=== PATIENT | female | born 1935 | race Caucasian/White ===

== ENCOUNTER 2023-08-05 12:39 | Inpatient (IN) | payer MEDICARE, BC ==
[2023-08-05 13:13] LABS: #Monocytes 0.6 thou/uL (0.11-0.59); #Neutrophils 4.6 thou/uL (1.40-6.50); %Basophils 0.3 % (0.0-1.0); %Lymphocytes 10.5 % (21.0-51.0); %Monocytes 9.8 % (0.0-10.0); %Neutrophils 78.9 % (42.0-75.0); Hematocrit 24.8 % (36.0-47.0); Mean Corpuscular HGB CONC 32.3 g/dL (32.0-36.0); Mean Corpuscular Hemoglobin 24.8 pg (27.0-31.0); Mean Platelet Volume 8.6 fL (7.4-10.4); Platelet Count 240 10x3/uL (130-400); RBC Distribution Width 15.9 % (11.5-14.5); Red Blood Cell (RBC) Count 3.22 mill/uL (4.20-5.40); White Blood Cell (WBC) Count 5.8 10x3/uL (4.8-10.8)
[2023-08-05 13:28] LABS: INR-International Normal Ratio 1.9; PTT 30.9 sec (22.9-36.1); Prothrombin Time 22.9 sec (12.0-14.7)
[2023-08-05 13:36] LABS: ALT (SGPT) 11 U/L (8-55); AST (SGOT) 17 U/L (5-34); Albumin 3.9 g/dL (3.4-4.8); Alkaline Phosphatase 67 U/L (40-110); Anion Gap 15 mmol/L (10-20); BUN (Urea Nitrogen) 15 mg/dL (9.8-20.1); Bilirubin, Total 0.4 mg/dL (0.2-1.2); Calc. Creatinine Clearance 0 mL/min (70-130); Calcium 8.3 mg/dL (7.8-10.44); Carbon Dioxide 19 mmol/L (23-31); Chloride 104 mmol/L (98-107); Estimated GFR 69; Globulin 2.7 g/dL (2.4-3.5); Glucose 106 mg/dL (83-110); Lipase 24 U/L (8-78); Magnesium 1.8 mg/dL (1.6-2.6); Potassium 3.8 mmol/L (3.5-5.1); Protein, Total 6.6 g/dL (5.8-8.1); Sodium 134 mmol/L (136-145)
[2023-08-05 13:46] LABS: Troponin I Less than 0.010 ng/mL (< 0.028)
[2023-08-05 15:06] LABS: Bilirubin Negative (Negative); Blood, Urine Negative (Negative); CAUTI Indications for Culture Alt mental st,lethar; Clarity Clear (Clear); Glucose, Urine (Dipstick) Normal (Negative); Ketone, Urine Negative (Negative); Leukocyte 75 Leu/uL (Negative); Nitrite 1+ (Negative); Protein, Urine (Dipstick) Negative (Neg-Trace); RBC/HPF 0-3 HPF (0-3); Squamous Epithelial 0-3 HPF (0-3); Urobilinogen Normal mg/dL (Less than 2); pH, Urine 6.5 (5.0-9.0)
[2023-08-05 15:07] LABS: Bacteria/HPF 1+ HPF (None Seen)
[2023-08-05 15:08] LABS: Urine Culture Reflex Yes Yes
[2023-08-05] MEDS ORDERED: cefTRIAXone (ROCEPHIN) 1 GM VIAL ONE ×2 (18:37→18:38)
[2023-08-05] MEDS ORDERED: Sodium Chloride 0.9% 100 ML ONE (18:37)
[2023-08-05] MEDS ORDERED: Ondansetron ODT 4 MG TAB PO PRN (18:50)
[2023-08-05] MEDS ORDERED: Pregabalin 50 MG CAP PO SCH (19:00)
[2023-08-05] MEDS ORDERED: Apixaban 2.5 MG TAB PO SCH (21:00)
[2023-08-05] MEDS: Lactated Ringer's 1,000 ML IV SCH (21:19)
[2023-08-05] MEDS: Acetaminophen 325 MG TAB PO PRN (22:25)
[2023-08-05] MEDS: Diclofenac 1% 50 GM TOPICAL GEL TP PRN (22:26)
[2023-08-06] MEDS: Levothyroxine Sodium 25 MCG TAB PO SCH (06:21)
[2023-08-06 06:42] LABS: #Monocytes 0.5 thou/uL (0.11-0.59); #Neutrophils 3.2 thou/uL (1.40-6.50); %Basophils 0.4 % (0.0-1.0); %Lymphocytes 20.3 % (21.0-51.0); %Neutrophils 67.9 % (42.0-75.0); Hematocrit 22.5 % (36.0-47.0); Hemoglobin 7.3 g/dL (12.0-16.0); Mean Corpuscular HGB CONC 32.4 g/dL (32.0-36.0); Mean Corpuscular Hemoglobin 25.3 pg (27.0-31.0); Mean Corpuscular Volume 78.1 fl (78.0-98.0); Mean Platelet Volume 8.3 fL (7.4-10.4); Platelet Count 223 10x3/uL (130-400); RBC Distribution Width 15.9 % (11.5-14.5); Red Blood Cell (RBC) Count 2.88 mill/uL (4.20-5.40); White Blood Cell (WBC) Count 4.6 10x3/uL (4.8-10.8)
[2023-08-06 07:07] LABS: ALT (SGPT) 10 U/L (8-55); AST (SGOT) 14 U/L (5-34); Albumin 3.1 g/dL (3.4-4.8); Alkaline Phosphatase 55 U/L (40-110); Anion Gap 10 mmol/L (10-20); BUN (Urea Nitrogen) 9 mg/dL (9.8-20.1); Bilirubin, Total 0.3 mg/dL (0.2-1.2); Calc. Creatinine Clearance 45 mL/min (70-130); Carbon Dioxide 26 mmol/L (23-31); Chloride 105 mmol/L (98-107); Estimated GFR 77; Globulin 2.5 g/dL (2.4-3.5); Glucose 82 mg/dL (83-110); Iron 18 ug/dL (50-170); Iron Binding Capacity, Total 375 mcg/dL (265-497); Potassium 3.4 mmol/L (3.5-5.1); Protein, Total 5.6 g/dL (5.8-8.1); Sodium 138 mmol/L (136-145)
[2023-08-06] MEDS: Apixaban 2.5 MG TAB PO SCH ×2 (09:04→20:31)
[2023-08-06] MEDS: Pregabalin 50 MG CAP PO SCH ×2 (09:04→20:31)
[2023-08-06] MEDS ORDERED: Ferrous Sulfate 300 MG (5 mL) UDCUP PO SCH (09:15)
[2023-08-06] MEDS ORDERED: Polyethylene Glycol 3350 17 GM Packet PO PRN (09:37)
[2023-08-06] MEDS: Lactated Ringer's 1,000 ML IV SCH ×2 (10:48→11:21)
[2023-08-06] MEDS: Acetaminophen 325 MG TAB PO PRN (11:17)
[2023-08-06] MEDS: Ascorbic Acid 500 mg Chewable Tablet PO SCH (11:19)
[2023-08-06] MEDS: FLU VACC QS2023(65UP)/MF59C/PF 60 MCG/0.5 ML SYRINGE IM ONE (11:26)
[2023-08-06] MEDS ORDERED: Amlodipine 5 MG TAB PO SCH (15:55)
[2023-08-06] MEDS ORDERED: Amiodarone 200 MG TAB PO SCH (15:55)
[2023-08-06] MEDS ORDERED: Oxybutynin ER 5 MG TAB PO SCH (16:15)
[2023-08-06] MEDS: cefTRIAXone\\ROCEPHIN 1 GM in Sodium Chloride 0.9% 100 ML IVPB SCH (18:31)
[2023-08-07] MEDS: Acetaminophen 325 MG TAB PO PRN ×2 (00:07→21:44)
[2023-08-07] MEDS: Diclofenac 1% 50 GM TOPICAL GEL TP PRN (00:08)
[2023-08-07] MEDS: Levothyroxine Sodium 25 MCG TAB PO SCH (06:34)
[2023-08-07 07:23] LABS: #Eosinphils 0.1 thou/uL (0.0-0.7); #Monocytes 0.5 thou/uL (0.11-0.59); #Neutrophils 3.7 thou/uL (1.40-6.50); %Basophils 0.4 % (0.0-1.0); %Eosinophils 1.9 % (0.0-10.0); %Lymphocytes 17.6 % (21.0-51.0); %Monocytes 10.3 % (0.0-10.0); %Neutrophils 69.6 % (42.0-75.0); Hematocrit 21.8 % (36.0-47.0); Mean Corpuscular HGB CONC 32.1 g/dL (32.0-36.0); Mean Corpuscular Volume 77.9 fl (78.0-98.0); Mean Platelet Volume 8.8 fL (7.4-10.4); Platelet Count 220 10x3/uL (130-400); RBC Distribution Width 16.1 % (11.5-14.5); White Blood Cell (WBC) Count 5.2 10x3/uL (4.8-10.8)
[2023-08-07 07:51] LABS: ALT (SGPT) 9 U/L (8-55); AST (SGOT) 15 U/L (5-34); Albumin 3.2 g/dL (3.4-4.8); Alkaline Phosphatase 56 U/L (40-110); Anion Gap 9 mmol/L (10-20); BUN (Urea Nitrogen) 10 mg/dL (9.8-20.1); Bilirubin, Total 0.4 mg/dL (0.2-1.2); Calc. Creatinine Clearance 42 mL/min (70-130); Calcium 8.3 mg/dL (7.8-10.44); Carbon Dioxide 27 mmol/L (23-31); Chloride 103 mmol/L (98-107); Estimated GFR 71; Globulin 2.3 g/dL (2.4-3.5); Glucose 88 mg/dL (83-110); Potassium 3.4 mmol/L (3.5-5.1); Protein, Total 5.5 g/dL (5.8-8.1); Sodium 136 mmol/L (136-145)
[2023-08-07] MEDS: Apixaban 2.5 MG TAB PO SCH (08:47)
[2023-08-07] MEDS: Pregabalin 50 MG CAP PO SCH ×2 (08:47→21:44)
[2023-08-07] MEDS: Ascorbic Acid 500 mg Chewable Tablet PO SCH (08:47)
[2023-08-07] MEDS: Amiodarone 200 MG TAB PO SCH (08:48)
[2023-08-07] MEDS: Oxybutynin ER 5 MG TAB PO SCH (08:48)
[2023-08-07] MEDS ORDERED: Potassium Chloride 20 MEQ TAB PO SCH (09:00)
[2023-08-07 09:15] LABS: Magnesium 1.8 mg/dL (1.6-2.6)
[2023-08-07] MEDS ORDERED: Pantoprazole 40 MG VIAL IVP SCH (13:15)
[2023-08-07 14:53] LABS: Hematocrit 23.3 % (36.0-47.0); Hemoglobin 7.1 g/dL (12.0-16.0); Mean Corpuscular HGB CONC 30.5 g/dL (32.0-36.0); Mean Corpuscular Hemoglobin 25.1 pg (27.0-31.0); Mean Platelet Volume 8.3 fL (7.4-10.4); Platelet Count 217 10x3/uL (130-400); RBC Distribution Width 16.1 % (11.5-14.5); Red Blood Cell (RBC) Count 2.83 mill/uL (4.20-5.40); White Blood Cell (WBC) Count 6.6 10x3/uL (4.8-10.8)
[2023-08-07 14:58] LABS: Mean Corpuscular Volume 82.3 fl (78.0-98.0)
[2023-08-07] MEDS: cefTRIAXone\\ROCEPHIN 1 GM in Sodium Chloride 0.9% 100 ML IVPB SCH (18:58)
[2023-08-07] MEDS: Pantoprazole 40 MG VIAL IVP SCH (21:44)
[2023-08-07] MEDS: Amlodipine 5 MG TAB PO SCH (21:45)
[2023-08-08 06:12] LABS: #Eosinphils 0.2 thou/uL (0.0-0.7); #Monocytes 0.6 thou/uL (0.11-0.59); #Neutrophils 3.8 thou/uL (1.40-6.50); %Basophils 0.4 % (0.0-1.0); %Eosinophils 2.6 % (0.0-10.0); %Lymphocytes 19.2 % (21.0-51.0); %Monocytes 9.9 % (0.0-10.0); %Neutrophils 67.5 % (42.0-75.0); Hematocrit 22.6 % (36.0-47.0); Hemoglobin 7.1 g/dL (12.0-16.0); Mean Corpuscular HGB CONC 31.4 g/dL (32.0-36.0); Mean Corpuscular Hemoglobin 24.7 pg (27.0-31.0); Mean Platelet Volume 8.5 fL (7.4-10.4); Platelet Count 224 10x3/uL (130-400); RBC Distribution Width 16.3 % (11.5-14.5); Red Blood Cell (RBC) Count 2.87 mill/uL (4.20-5.40); White Blood Cell (WBC) Count 5.7 10x3/uL (4.8-10.8)
[2023-08-08] MEDS ORDERED: Polyethylene Glycol 3350 17 GM Packet PO SCH (06:15)
[2023-08-08 06:18] LABS: Mean Corpuscular Volume 78.7 fl (78.0-98.0)
[2023-08-08] MEDS: Levothyroxine Sodium 25 MCG TAB PO SCH (06:18)
[2023-08-08 06:38] LABS: ALT (SGPT) 9 U/L (8-55); AST (SGOT) 13 U/L (5-34); Albumin 3.1 g/dL (3.4-4.8); Alkaline Phosphatase 52 U/L (40-110); Anion Gap 10 mmol/L (10-20); BUN (Urea Nitrogen) 11 mg/dL (9.8-20.1); Bilirubin, Total 0.3 mg/dL (0.2-1.2); Calc. Creatinine Clearance 45 mL/min (70-130); Calcium 8.2 mg/dL (7.8-10.44); Carbon Dioxide 27 mmol/L (23-31); Chloride 103 mmol/L (98-107); Estimated GFR 75; Globulin 2.3 g/dL (2.4-3.5); Glucose 83 mg/dL (83-110); Potassium 3.9 mmol/L (3.5-5.1); Protein, Total 5.4 g/dL (5.8-8.1); Sodium 136 mmol/L (136-145)
[2023-08-08] MEDS: Ferrous Sulfate 300 MG (5 mL) UDCUP PO SCH ×2 (08:23→08:33)
[2023-08-08] MEDS: Oxybutynin ER 5 MG TAB PO SCH (08:23)
[2023-08-08] MEDS: Pregabalin 50 MG CAP PO SCH ×2 (08:24→21:23)
[2023-08-08] MEDS: Ascorbic Acid 500 mg Chewable Tablet PO SCH (08:24)
[2023-08-08] MEDS: Amiodarone 200 MG TAB PO SCH (08:24)
[2023-08-08] MEDS: Pantoprazole 40 MG VIAL IVP SCH ×2 (08:25→21:22)
[2023-08-08] MEDS ORDERED: Ferrous Sulfate 325 MG TAB PO SCH (09:00)
[2023-08-08] MEDS ORDERED: Iron, Sodium Ferric Gluconate 250 MG in Sodium Chloride 0.9% 250 ML 250 ML IVPB SCH (09:45)
[2023-08-08] MEDS: FLU VACC QS2023(65UP)/MF59C/PF 60 MCG/0.5 ML SYRINGE IM ONE (10:51)
[2023-08-08] MEDS ORDERED: diphenhydrAMINE 50 MG/ML VIAL ONE (14:16)
[2023-08-08] MEDS ORDERED: diphenhydrAMINE 50 MG/ML VIAL IVP SCH (14:30)
[2023-08-08] MEDS ORDERED: Albumin 25% 100 ML ONE (16:05)
[2023-08-08 16:23] LABS: Hematocrit 26.4 % (36.0-47.0); Hemoglobin 8.1 g/dL (12.0-16.0); Platelet Count 241 10x3/uL (130-400)
[2023-08-08] MEDS ORDERED: GoLYTELY 4,000 ml Bottle PO SCH (17:00)
[2023-08-08] MEDS: Albumin 25% 25 GM (100 mL) BOT IVPB SCH (17:52)
[2023-08-08] MEDS: cefTRIAXone\\ROCEPHIN 1 GM in Sodium Chloride 0.9% 100 ML IVPB SCH (18:10)
[2023-08-08] MEDS: Amlodipine 5 MG TAB PO SCH (21:22)
[2023-08-08 22:33] LABS: Hematocrit 34.4 % (36.0-47.0); Hemoglobin 10.8 g/dL (12.0-16.0); Mean Corpuscular HGB CONC 31.4 g/dL (32.0-36.0); Mean Corpuscular Hemoglobin 24.9 pg (27.0-31.0); Mean Corpuscular Volume 79.4 fl (78.0-98.0); Mean Platelet Volume 8.1 fL (7.4-10.4); Platelet Count 157 10x3/uL (130-400); RBC Distribution Width 16.2 % (11.5-14.5); Red Blood Cell (RBC) Count 4.33 mill/uL (4.20-5.40); White Blood Cell (WBC) Count 5.6 10x3/uL (4.8-10.8)
[2023-08-09 05:37] LABS: #Eosinphils 0.1 thou/uL (0.0-0.7); #Monocytes 0.8 thou/uL (0.11-0.59); %Basophils 0.3 % (0.0-1.0); %Eosinophils 0.9 % (0.0-10.0); %Lymphocytes 8.4 % (21.0-51.0); %Monocytes 10.9 % (0.0-10.0); %Neutrophils 79.1 % (42.0-75.0); Mean Corpuscular HGB CONC 31.6 g/dL (32.0-36.0); Mean Corpuscular Hemoglobin 24.7 pg (27.0-31.0); Mean Corpuscular Volume 78.3 fl (78.0-98.0); Mean Platelet Volume 8.3 fL (7.4-10.4); Platelet Count 213 10x3/uL (130-400); RBC Distribution Width 16.4 % (11.5-14.5); Red Blood Cell (RBC) Count 2.95 mill/uL (4.20-5.40); White Blood Cell (WBC) Count 7.5 10x3/uL (4.8-10.8)
[2023-08-09] MEDS: Levothyroxine Sodium 25 MCG TAB PO SCH (05:46)
[2023-08-09 05:51] LABS: Hematocrit 23.1 % (36.0-47.0); Hemoglobin 7.3 g/dL (12.0-16.0)
[2023-08-09 06:13] LABS: Anion Gap 13 mmol/L (10-20); BUN (Urea Nitrogen) 7 mg/dL (9.8-20.1); Calc. Creatinine Clearance 49 mL/min (70-130); Calcium 7.9 mg/dL (7.8-10.44); Carbon Dioxide 23 mmol/L (23-31); Chloride 105 mmol/L (98-107); Estimated GFR 80; Glucose 82 mg/dL (83-110); Potassium 3.2 mmol/L (3.5-5.1); Sodium 138 mmol/L (136-145)
[2023-08-09] MEDS ORDERED: Potassium Chloride 20 MEQ TAB PO SCH (08:15)
[2023-08-09] MEDS ORDERED: Lidocaine 1% PF 5 ML VIAL ONE (08:55)
[2023-08-09] MEDS ORDERED: PROPOFOL 20 ML ONE (08:55)
[2023-08-09] MEDS: Amiodarone 200 MG TAB PO SCH (10:58)
[2023-08-09] MEDS: Oxybutynin ER 5 MG TAB PO SCH (10:58)
[2023-08-09] MEDS: Pregabalin 50 MG CAP PO SCH ×2 (10:59→20:10)
[2023-08-09] MEDS: Acetaminophen 325 MG TAB PO PRN ×2 (10:59→20:22)
[2023-08-09] MEDS: Ascorbic Acid 500 mg Chewable Tablet PO SCH (10:59)
[2023-08-09] MEDS: Pantoprazole 40 MG VIAL IVP SCH ×2 (11:00→20:11)
[2023-08-09 11:52] LABS: Magnesium 1.8 mg/dL (1.6-2.6); Phosphorus 4.2 mg/dL (2.3-4.7)
[2023-08-09] MEDS ORDERED: Magnesium Oxide 400 MG TAB PO SCH (12:28)
[2023-08-09] MEDS ORDERED: GoLYTELY 4,000 ml Bottle PO SCH (17:00)
[2023-08-09] MEDS: cefTRIAXone\\ROCEPHIN 1 GM in Sodium Chloride 0.9% 100 ML IVPB SCH (17:39)
[2023-08-09] MEDS: Albumin 25% 25 GM (100 mL) BOT IVPB SCH (17:43)
[2023-08-09] MEDS: Amlodipine 5 MG TAB PO SCH (20:11)
[2023-08-09] MEDS: Magnesium Oxide 400 MG TAB PO SCH (20:11)
[2023-08-09 23:01] LABS: Hematocrit 29.1 % (36.0-47.0); Hemoglobin 9.5 g/dL (12.0-16.0)
[2023-08-10] MEDS: Levothyroxine Sodium 25 MCG TAB PO SCH (04:56)
[2023-08-10] MEDS ORDERED: Midazolam HCl 2 mg/2 ml Vial ONE (08:25)
[2023-08-10] MEDS ORDERED: PROPOFOL 40 ML ONE (08:25)
[2023-08-10] MEDS: Ascorbic Acid 500 mg Chewable Tablet PO SCH (10:55)
[2023-08-10] MEDS: Pregabalin 50 MG CAP PO SCH ×2 (10:55→20:02)
[2023-08-10] MEDS: Amiodarone 200 MG TAB PO SCH (10:55)
[2023-08-10] MEDS: Pantoprazole 40 MG VIAL IVP SCH ×2 (10:55→20:03)
[2023-08-10] MEDS: Magnesium Oxide 400 MG TAB PO SCH ×2 (10:55→20:02)
[2023-08-10] MEDS: Oxybutynin ER 5 MG TAB PO SCH (10:56)
[2023-08-10 11:26] LABS: #Eosinphils 0.1 thou/uL (0.0-0.7); #Monocytes 0.8 thou/uL (0.11-0.59); #Neutrophils 6.9 thou/uL (1.40-6.50); %Basophils 0.3 % (0.0-1.0); %Eosinophils 0.6 % (0.0-10.0); %Lymphocytes 10.3 % (21.0-51.0); %Monocytes 8.7 % (0.0-10.0); %Neutrophils 79.5 % (42.0-75.0); Hemoglobin 9.2 g/dL (12.0-16.0); Mean Corpuscular HGB CONC 31.7 g/dL (32.0-36.0); Mean Corpuscular Hemoglobin 24.5 pg (27.0-31.0); Mean Corpuscular Volume 77.1 fl (78.0-98.0); Mean Platelet Volume 8.1 fL (7.4-10.4); Platelet Count 219 10x3/uL (130-400); RBC Distribution Width 17.5 % (11.5-14.5); Red Blood Cell (RBC) Count 3.76 mill/uL (4.20-5.40); White Blood Cell (WBC) Count 8.7 10x3/uL (4.8-10.8)
[2023-08-10 11:50] LABS: ALT (SGPT) 10 U/L (8-55); AST (SGOT) 16 U/L (5-34); Albumin 3.8 g/dL (3.4-4.8); Alkaline Phosphatase 58 U/L (40-110); Anion Gap 16 mmol/L (10-20); BUN (Urea Nitrogen) 7 mg/dL (9.8-20.1); Calc. Creatinine Clearance 56 mL/min (70-130); Calcium 8.6 mg/dL (7.8-10.44); Carbon Dioxide 25 mmol/L (23-31); Chloride 99 mmol/L (98-107); Estimated GFR 85; Globulin 2.6 g/dL (2.4-3.5); Glucose 87 mg/dL (83-110); Potassium 3.9 mmol/L (3.5-5.1); Protein, Total 6.4 g/dL (5.8-8.1); Sodium 136 mmol/L (136-145)
[2023-08-10 11:56] LABS: Magnesium 1.8 mg/dL (1.6-2.6)
[2023-08-10] MEDS: Acetaminophen 325 MG TAB PO PRN ×2 (13:30→20:05)
[2023-08-10] MEDS: Amlodipine 5 MG TAB PO SCH (20:02)
[2023-08-11] MEDS: Levothyroxine Sodium 25 MCG TAB PO SCH (05:13)
[2023-08-11 05:19] LABS: #Eosinphils 0.1 thou/uL (0.0-0.7); #Monocytes 0.7 thou/uL (0.11-0.59); #Neutrophils 4.6 thou/uL (1.40-6.50); %Basophils 0.3 % (0.0-1.0); %Eosinophils 1.7 % (0.0-10.0); %Lymphocytes 13.6 % (21.0-51.0); %Monocytes 11.6 % (0.0-10.0); %Neutrophils 72.3 % (42.0-75.0); Hematocrit 25.8 % (36.0-47.0); Hemoglobin 8.4 g/dL (12.0-16.0); Mean Corpuscular HGB CONC 32.6 g/dL (32.0-36.0); Mean Corpuscular Hemoglobin 24.7 pg (27.0-31.0); Mean Corpuscular Volume 75.9 fl (78.0-98.0); Mean Platelet Volume 8.5 fL (7.4-10.4); Platelet Count 213 10x3/uL (130-400); White Blood Cell (WBC) Count 6.4 10x3/uL (4.8-10.8)
[2023-08-11 05:41] LABS: ALT (SGPT) 9 U/L (8-55); AST (SGOT) 15 U/L (5-34); Albumin 3.7 g/dL (3.4-4.8); Alkaline Phosphatase 53 U/L (40-110); Anion Gap 13 mmol/L (10-20); BUN (Urea Nitrogen) 9 mg/dL (9.8-20.1); Bilirubin, Total 0.8 mg/dL (0.2-1.2); Calc. Creatinine Clearance 63 mL/min (70-130); Calcium 8.3 mg/dL (7.8-10.44); Carbon Dioxide 26 mmol/L (23-31); Chloride 99 mmol/L (98-107); Estimated GFR 84; Globulin 2.2 g/dL (2.4-3.5); Glucose 81 mg/dL (83-110); Potassium 3.5 mmol/L (3.5-5.1); Protein, Total 5.9 g/dL (5.8-8.1); Sodium 134 mmol/L (136-145)
[2023-08-11 10:16] VITALS: BMI 27.2
[2023-08-11 11:25] LABS: Hematocrit 27.5 % (36.0-47.0); Hemoglobin 8.9 g/dL (12.0-16.0); Mean Corpuscular HGB CONC 32.4 g/dL (32.0-36.0); Mean Corpuscular Hemoglobin 24.7 pg (27.0-31.0); Mean Corpuscular Volume 76.2 fl (78.0-98.0); Mean Platelet Volume 8.9 fL (7.4-10.4); Platelet Count 244 10x3/uL (130-400); Red Blood Cell (RBC) Count 3.61 mill/uL (4.20-5.40); White Blood Cell (WBC) Count 7.7 10x3/uL (4.8-10.8)
[2023-08-11] MEDS: Magnesium Oxide 400 MG TAB PO SCH (11:26)
[2023-08-11] MEDS: Ascorbic Acid 500 mg Chewable Tablet PO SCH (11:27)
[2023-08-11] MEDS: Amiodarone 200 MG TAB PO SCH (11:27)
[2023-08-11] MEDS: Oxybutynin ER 5 MG TAB PO SCH (11:31)
[2023-08-11] MEDS: Pregabalin 50 MG CAP PO SCH (11:31)
[2023-08-11] MEDS: Pantoprazole 40 MG VIAL IVP SCH (11:33)
[2023-08-11] MEDS: Acetaminophen 325 MG TAB PO PRN (15:04)
[2023-08-11 17:20] VITALS: BP 141/65; TEMP 97.8
== END 2023-08-11 18:36 | DRG 812 ==
LOC: ERS 12:39 → 2SW 18:15 → OBSVTOIN 08-07 09:07 → CCU 08-08 16:36 → 2NO 08-09 04:28 → CCU 08-10 09:54 → 2NO 08-10 10:01
PROVIDERS: ADMIT Family Medicine; ATTEND Family Medicine
PROC: 3E033XZ Introduction of Vasopressor into Peripheral Vein, Percutaneous Approach (ICD-10-PCS; 2023-08-07)
PROC: 30233N1 Transfusion of Nonautologous Red Blood Cells into Peripheral Vein, Percutaneous Approach (ICD-10-PCS; 2023-08-09)
PROC: 30233J1 Transfusion of Nonautologous Serum Albumin into Peripheral Vein, Percutaneous Approach (ICD-10-PCS; 2023-08-09)
PROC: 0DBK8ZX Excision of Ascending Colon, Via Natural or Artificial Opening Endoscopic, Diagnostic (ICD-10-PCS; principal; 2023-08-10)
PROC: 0DBL8ZX Excision of Transverse Colon, Via Natural or Artificial Opening Endoscopic, Diagnostic (ICD-10-PCS; 2023-08-10)
PROC: 0DBP8ZX Excision of Rectum, Via Natural or Artificial Opening Endoscopic, Diagnostic (ICD-10-PCS; 2023-08-10)
PROC: 0DBH8ZX Excision of Cecum, Via Natural or Artificial Opening Endoscopic, Diagnostic (ICD-10-PCS; 2023-08-10)
DX: D50.9 Iron deficiency anemia, unspecified (principal); N39.0 Urinary tract infection, site not specified; R55 Syncope and collapse; D12.6 Benign neoplasm of colon, unspecified; D12.8 Benign neoplasm of rectum; K57.30 Diverticulosis of large intestine without perforation or abscess without bleeding; I48.91 Unspecified atrial fibrillation; Z96.611 Presence of right artificial shoulder joint; M62.838 Other muscle spasm; D53.9 Nutritional anemia, unspecified; K64.4 Residual hemorrhoidal skin tags; I95.9 Hypotension, unspecified; I50.9 Heart failure, unspecified; I11.0 Hypertensive heart disease with heart failure; B96.1 Klebsiella pneumoniae [K. pneumoniae] as the cause of diseases classified elsewhere; K64.8 Other hemorrhoids; R05.9 Cough, unspecified; Z88.0 Allergy status to penicillin; Z79.899 Other long term (current) drug therapy; Z95.0 Presence of cardiac pacemaker; Z90.710 Acquired absence of both cervix and uterus; Z82.49 Family history of ischemic heart disease and other diseases of the circulatory system; E03.8 Other specified hypothyroidism
CPT/HCPCS: 36415; 36416; 36430; 70450; 71045; 80048; 80053; 81001; 82274; 82728; 83540; 83550; 83690; 83735; 83880; 84100; 84439; 84443; 84484; 85025; 85610; 85730; 86850; 86900; 86901; 87077; 87086; 87186; 88305; 90471; 90694; 93005; 93306; 93880; 96365; 96376; C9113; G0008; G0378; J0696; J1200; J2250; J2704; J2916; J3490; J7050; J7120; P9016; P9047

== ENCOUNTER 2024-06-14 16:58 | Emergency (ER) | payer MEDICARE ==
[2024-06-14 18:37] LABS: #Basophils Less than 0.03 10x3/uL (0.0-0.2); %Basophils 0.2 % (0.0-1.0); %Eosinophils 0.4 % (0.0-10.0); %Monocytes 6.9 % (0.0-10.0); %Neutrophils 85.6 % (42.0-75.0); Hematocrit 32.5 % (36.0-47.0); Hemoglobin 11.3 g/dL (12.0-16.0); Mean Corpuscular HGB CONC 34.8 g/dL (32.0-36.0); Mean Corpuscular Hemoglobin 29.7 pg (27.0-31.0); Mean Corpuscular Volume 85.5 fL (78.0-98.0); Mean Platelet Volume 7.8 fL (7.4-10.4); Platelet Count 389 10x3/uL (130-400); RBC Distribution Width 14.1 % (11.5-14.5)
[2024-06-14 18:49] LABS: ALT (SGPT) 13 U/L (8-55); AST (SGOT) 18 U/L (5-34); Albumin 3.1 g/dL (3.4-4.8); Alkaline Phosphatase 88 U/L (40-110); Anion Gap 17 mmol/L (10-20); BUN (Urea Nitrogen) 11 mg/dL (9.8-20.1); Bilirubin, Total 0.4 mg/dL (0.2-1.2); Calc. Creatinine Clearance 0 mL/min (70-130); Calcium 8.7 mg/dL (7.8-10.44); Carbon Dioxide 23 mmol/L (23-31); Chloride 91 mmol/L (98-107); Estimated GFR 84; Globulin 3.7 g/dL (2.4-3.5); Glucose 97 mg/dL (83-110); Lipase 14 U/L (8-78); Potassium 3.9 mmol/L (3.5-5.1); Protein, Total 6.8 g/dL (5.8-8.1); Sodium 127 mmol/L (136-145)
[2024-06-14 18:57] LABS: Troponin I Less than 0.010 ng/mL (< 0.028)
[2024-06-14] MEDS ORDERED: Ondansetron PF 4 MG/2 ML Vial ONE (19:23)
[2024-06-14] MEDS ORDERED: Acetaminophen 325 MG TAB ONE (20:53)
== END 2024-06-14 21:00 | disposition home or self-care (01) ==
LOC: ERS 16:58
DX: R11.2 Nausea with vomiting, unspecified (principal); T36.8X5A Adverse effect of other systemic antibiotics, initial encounter; I10 Essential (primary) hypertension; Z95.0 Presence of cardiac pacemaker
CPT/HCPCS: 71045; 80053; 83605; 83690; 83880; 84484; 85025; 93005; J2405; 36415; 96361; 96374

== ENCOUNTER 2024-06-15 11:17 | Inpatient (IN) | payer MEDICARE, SELFPAY ==
[2024-06-15] MEDS ORDERED: Ondansetron PF 4 MG/2 ML Vial ONE (11:58)
[2024-06-15] MEDS ORDERED: Acetaminophen 500 MG TAB ONE (13:04)
[2024-06-15 13:20] LABS: #Basophils Less than 0.03 10x3/uL (0.0-0.2); #Eosinophils Less than 0.03 10x3/uL (0.0-0.7); %Basophils 0.2 % (0.0-1.0); %Eosinophils 0.1 % (0.0-10.0); %Lymphocytes 5.9 % (21.0-51.0); Hematocrit 30.4 % (36.0-47.0); Hemoglobin 10.6 g/dL (12.0-16.0); Mean Corpuscular HGB CONC 34.9 g/dL (32.0-36.0); Mean Corpuscular Hemoglobin 29.4 pg (27.0-31.0); Mean Corpuscular Volume 84.2 fL (78.0-98.0); Mean Platelet Volume 7.7 fL (7.4-10.4); Platelet Count 332 10x3/uL (130-400); Red Blood Cell (RBC) Count 3.61 mill/uL (4.20-5.40)
[2024-06-15 13:34] LABS: Lipase 13 U/L (8-78); Magnesium 1.9 mg/dL (1.6-2.6)
[2024-06-15 13:35] LABS: Acetaminophen Less than 10 mcg/mL (Less than 10); Alcohol Less than 10.0 mg/dL (Less than 10); Salicylate Less than 8.0 mg/dL (Less than 8.0)
[2024-06-15 13:43] LABS: ALT (SGPT) 13 U/L (8-55); AST (SGOT) 19 U/L (5-34); Alkaline Phosphatase 81 U/L (40-110); Anion Gap 18 mmol/L (10-20); BUN (Urea Nitrogen) 11 mg/dL (9.8-20.1); Bilirubin, Total 0.3 mg/dL (0.2-1.2); Calc. Creatinine Clearance 0 mL/min (70-130); Calcium 8.5 mg/dL (7.8-10.44); Carbon Dioxide 20 mmol/L (23-31); Chloride 95 mmol/L (98-107); Estimated GFR 85; Globulin 3.5 g/dL (2.4-3.5); Glucose 97 mg/dL (83-110); Potassium 3.6 mmol/L (3.5-5.1); Protein, Total 6.5 g/dL (5.8-8.1); Sodium 129 mmol/L (136-145)
[2024-06-15 13:56] LABS: Troponin I Less than 0.010 ng/mL (< 0.028)
[2024-06-15 14:01] LABS: Amphetamine Not Detected (NotDetected); Barbiturates Screen Not Detected (NotDetected); Benzodiazepine Screen Not Detected (NotDetected); Cocaine Metabolite Screen Not Detected (NotDetected); Methadone Not Detected (NotDetected); Methamphetamine Not Detected (NotDetected); Opiate Screen Not Detected (NotDetected); Oxycodone Screen Not Detected (NotDetected); Phencyclidine (PCP) Not Detected (NotDetected); THC/Cannabinoid Screen Not Detected (NotDetected); Tricyclic Screen Not Detected (NotDetected)
[2024-06-15 14:07] LABS: Bilirubin Negative (Negative); Blood, Urine Negative (Negative); CAUTI Indications for Culture Dysuria,urgency,freq; Clarity Clear (Clear); Glucose, Urine (Dipstick) Normal (Negative); Ketone, Urine 20 mg/dL (Negative); Leukocyte Negative Leu/uL (Negative); Nitrite Negative (Negative); Protein, Urine (Dipstick) Negative (Neg-Trace); RBC/HPF 0-3 HPF (0-3); Specific Gravity, Urine 1.016 (1.002-1.036); Squamous Epithelial 0-3 HPF (0-3); Urobilinogen Normal mg/dL (Less than 2); pH, Urine 7.5 (5.0-9.0)
[2024-06-15 14:21] LABS: Bacteria/HPF 1+ HPF (None Seen)
[2024-06-15 14:23] LABS: Urine Culture Reflex Yes Yes
[2024-06-15] MEDS ORDERED: Guaifenesin DM 100-10/5 ML UDCUP PO PRN (15:15)
[2024-06-15] MEDS ORDERED: Iopamidol-370 76% 500 ML MDV (1 ML CHARGE) ONE (15:40)
[2024-06-15 16:33] VITALS: BMI 20.1
[2024-06-15] MEDS: Sodium Chloride 0.9% 1,000 ML IV SCH (18:12)
[2024-06-15] MEDS: Vancomycin HCl 125 MG Capsule PO SCH (18:23)
[2024-06-15] MEDS: Pregabalin 50 MG CAP PO SCH (20:10)
[2024-06-15] MEDS: Ondansetron PF 4 MG/2 ML Vial IVP PRN (20:24)
[2024-06-15] MEDS: Acetaminophen 325 MG TAB PO PRN (22:34)
[2024-06-16 04:52] LABS: #Basophils 0.03 10x3/uL (0.0-0.2); %Basophils 0.4 % (0.0-1.0); %Eosinophils 0.6 % (0.0-10.0); %Lymphocytes 12.1 % (21.0-51.0); %Monocytes 8.4 % (0.0-10.0); %Neutrophils 77.7 % (42.0-75.0); Hemoglobin 9.8 g/dL (12.0-16.0); Mean Corpuscular Hemoglobin 29.8 pg (27.0-31.0); Mean Corpuscular Volume 85.1 fL (78.0-98.0); Mean Platelet Volume 7.4 fL (7.4-10.4); Platelet Count 343 10x3/uL (130-400); RBC Distribution Width 14.2 % (11.5-14.5); Red Blood Cell (RBC) Count 3.29 mill/uL (4.20-5.40)
[2024-06-16] MEDS: Levothyroxine Sodium 50 MCG TAB PO SCH (05:07)
[2024-06-16 05:20] LABS: ALT (SGPT) 11 U/L (8-55); AST (SGOT) 17 U/L (5-34); Albumin 2.6 g/dL (3.4-4.8); Alkaline Phosphatase 70 U/L (40-110); Anion Gap 10 mmol/L (10-20); BUN (Urea Nitrogen) 7 mg/dL (9.8-20.1); Bilirubin, Total 0.3 mg/dL (0.2-1.2); Calc. Creatinine Clearance 53 mL/min (70-130); Calcium 7.9 mg/dL (7.8-10.44); Carbon Dioxide 24 mmol/L (23-31); Chloride 97 mmol/L (98-107); Estimated GFR 87; Globulin 2.9 g/dL (2.4-3.5); Glucose 82 mg/dL (83-110); Potassium 3.1 mmol/L (3.5-5.1); Protein, Total 5.5 g/dL (5.8-8.1); Sodium 128 mmol/L (136-145)
[2024-06-16 05:32] LABS: Free T4 (Free Thyroxine) 1.19 ng/dL (0.70-1.48); Thyroid Stimulating Hormone 1.2343 uIU/mL (0.35-4.94)
[2024-06-16] MEDS ORDERED: Amlodipine 5 MG TAB PO SCH (09:00)
[2024-06-16] MEDS: Trospium 20 MG TAB PO SCH (09:15)
[2024-06-16] MEDS: Amiodarone 200 MG TAB PO SCH (09:16)
[2024-06-16] MEDS: Ferrous Sulfate 325 MG TAB PO SCH (09:16)
[2024-06-16] MEDS: Aspirin 81 mg Enteric Coated Tablet PO SCH (09:16)
[2024-06-16] MEDS: Pregabalin 50 MG CAP PO SCH (09:17)
[2024-06-16] MEDS: Enoxaparin 30 MG (0.3 mL) SYRINGE SC SCH (09:20)
[2024-06-16 12:22] LABS: Influenza A by NAA Not Detected (NotDetected); Influenza B by NAA Not Detected (NotDetected); RSV by NAA Not Detected (NotDetected); SARS-CoV-2 NAA Rapid Test Not Detected (NotDetected)
[2024-06-16] MEDS: FLU (Fluad Triv) TS24-25 (65UP)/MF59C/PF 45 MCG/0.5 ML Syringe IM ONE (13:47)
[2024-06-16] MEDS: Amlodipine 5 MG TAB PO SCH (20:53)
[2024-06-17 05:06] LABS: #Basophils 0.04 10x3/uL (0.0-0.2); %Basophils 0.4 % (0.0-1.0); %Eosinophils 0.6 % (0.0-10.0); %Lymphocytes 11.9 % (21.0-51.0); %Monocytes 7.3 % (0.0-10.0); %Neutrophils 78.8 % (42.0-75.0); Hematocrit 28.8 % (36.0-47.0); Hemoglobin 10.2 g/dL (12.0-16.0); Mean Corpuscular HGB CONC 35.4 g/dL (32.0-36.0); Mean Corpuscular Hemoglobin 29.7 pg (27.0-31.0); Mean Corpuscular Volume 83.7 fL (78.0-98.0); Mean Platelet Volume 7.4 fL (7.4-10.4); Platelet Count 374 10x3/uL (130-400); RBC Distribution Width 13.9 % (11.5-14.5); Red Blood Cell (RBC) Count 3.44 mill/uL (4.20-5.40)
[2024-06-17 05:24] LABS: ALT (SGPT) 11 U/L (8-55); AST (SGOT) 18 U/L (5-34); Albumin 2.6 g/dL (3.4-4.8); Alkaline Phosphatase 71 U/L (40-110); Anion Gap 12 mmol/L (10-20); BUN (Urea Nitrogen) 5 mg/dL (9.8-20.1); Bilirubin, Total 0.3 mg/dL (0.2-1.2); Calc. Creatinine Clearance 59 mL/min (70-130); Calcium 7.9 mg/dL (7.8-10.44); Carbon Dioxide 24 mmol/L (23-31); Chloride 91 mmol/L (98-107); Estimated GFR 89; Globulin 2.8 g/dL (2.4-3.5); Glucose 75 mg/dL (83-110); Magnesium 1.7 mg/dL (1.6-2.6); Potassium 3.1 mmol/L (3.5-5.1); Protein, Total 5.4 g/dL (5.8-8.1); Sodium 124 mmol/L (136-145)
[2024-06-17] MEDS: Enoxaparin 40 MG (0.4 mL) SYRINGE SC SCH (08:42)
[2024-06-17] MEDS ORDERED: Milk Of Magnesia 30 ML UDCUP PO PRN (09:25)
[2024-06-17] MEDS ORDERED: Senokot S 8.6-50 MG TAB PO PRN (09:26)
[2024-06-17] MEDS: Folic Acid/Vit B Comp W-C PO SCH (10:19)
[2024-06-17] MEDS: Polyethylene Glycol 3350 17 GM Packet PO SCH (10:20)
[2024-06-17] MEDS: Cosyntropin 250 MCG VIAL SLOW IVP SCH (10:26)
[2024-06-17 16:49] VITALS: BMI 20.1
[2024-06-17] MEDS ORDERED: cefTRIAXone\\ROCEPHIN 2 GM in Sodium Chloride 0.9% 100 ML IVPB SCH (20:00)
[2024-06-17] MEDS: Mirtazapine 15 MG TAB PO SCH (20:29)
[2024-06-17] MEDS: Sodium Chloride 1 GM TAB PO SCH (20:30)
[2024-06-17] MEDS ORDERED: metroNIDAZOLE 500 MG in Premix 1 BAG IVPB SCH (21:00)
[2024-06-18 05:44] LABS: #Basophils 0.03 10x3/uL (0.0-0.2); %Basophils 0.3 % (0.0-1.0); %Eosinophils 0.5 % (0.0-10.0); %Lymphocytes 14.2 % (21.0-51.0); %Monocytes 8.4 % (0.0-10.0); %Neutrophils 75.8 % (42.0-75.0); Hemoglobin 11.5 g/dL (12.0-16.0); Mean Corpuscular HGB CONC 34.8 g/dL (32.0-36.0); Mean Corpuscular Volume 83.1 fL (78.0-98.0); Mean Platelet Volume 7.4 fL (7.4-10.4); Platelet Count 425 10x3/uL (130-400); RBC Distribution Width 13.9 % (11.5-14.5); Red Blood Cell (RBC) Count 3.97 mill/uL (4.20-5.40)
[2024-06-18 06:13] LABS: ALT (SGPT) 11 U/L (8-55); AST (SGOT) 17 U/L (5-34); Albumin 2.8 g/dL (3.4-4.8); Alkaline Phosphatase 79 U/L (40-110); Anion Gap 12 mmol/L (10-20); BUN (Urea Nitrogen) 10 mg/dL (9.8-20.1); Bilirubin, Total 0.4 mg/dL (0.2-1.2); Calc. Creatinine Clearance 46 mL/min (70-130); Calcium 8.3 mg/dL (7.8-10.44); Carbon Dioxide 28 mmol/L (23-31); Chloride 91 mmol/L (98-107); Estimated GFR 84; Glucose 63 mg/dL (83-110); Magnesium 1.8 mg/dL (1.6-2.6); Potassium 2.8 mmol/L (3.5-5.1); Protein, Total 5.8 g/dL (5.8-8.1); Sodium 128 mmol/L (136-145)
[2024-06-18 08:15] VITALS: TEMP 97.6
[2024-06-18] MEDS: Polyethylene Glycol 3350 17 GM Packet PO SCH (08:23)
[2024-06-18] MEDS: Potassium Chloride 20 MEQ TAB PO SCH (08:32)
[2024-06-18 11:25] VITALS: BP 107/62
== END 2024-06-18 15:35 | disposition home health service (06) | DRG 392 ==
LOC: ERS 11:17 → SURG B 16:28
PROVIDERS: ADMIT Hospitalist; ATTEND Family Medicine
DX: K52.9 Noninfective gastroenteritis and colitis, unspecified (principal); E22.2 Syndrome of inappropriate secretion of antidiuretic hormone; I50.32 Chronic diastolic (congestive) heart failure; M54.2 Cervicalgia; I48.0 Paroxysmal atrial fibrillation; K80.20 Calculus of gallbladder without cholecystitis without obstruction; E86.0 Dehydration; E03.9 Hypothyroidism, unspecified; Z88.0 Allergy status to penicillin; I48.91 Unspecified atrial fibrillation; Z90.710 Acquired absence of both cervix and uterus; Z95.0 Presence of cardiac pacemaker; Z98.890 Other specified postprocedural states; Z79.899 Other long term (current) drug therapy; I11.0 Hypertensive heart disease with heart failure; K44.9 Diaphragmatic hernia without obstruction or gangrene; Z66 Do not resuscitate; Z51.5 Encounter for palliative care; E87.6 Hypokalemia
CPT/HCPCS: 0241U; 36415; 70450; 71045; 74177; 74181; 76376; 76705; 80053; 80306; 80307; 80400; 81001; 83036; 83605; 83690; 83735; 83880; 83935; 84300; 84439; 84443; 84481; 84484; 85025; 87040; 87077; 87086; 87186; 93005; 93306; 96374; J0834; J1650; J2405; J7030; Q9967